=== PATIENT | male | born 2000 | race Caucasian/White ===

== ENCOUNTER 2022-07-26 16:54 | Emergency (ER) | payer MEDICAID, SELFPAY ==
--- NOTE | ~2022-07-26 | XR_ITS ---
EXAMINATION: XR chest 2V CLINICAL INFORMATION: Left-sided chest pain cough COMPARISON: No prior chest x-ray available in our system for comparison at the time of this dictation. TECHNIQUE: XR chest 2V Lungs and Paige: Both lungs are clear. Pleura: Normal. Costophrenic angles are sharp. No pneumothorax. Heart: The heart is normal in size. Mediastinum: The mediastinum is within normal limits.. Bones: Skeletal structures included are normal for patient's age. XR/XR chest 2V IMPRESSION: Normal chest x-ray.
--- NOTE | 2022-07-26 17:02 | ECG_ITS ---
Test Reason : cp Blood Pressure : / mmHG Vent. Rate : 077 BPM Atrial Rate : 077 BPM P-R Int : 166 ms QRS Dur : 106 ms QT Int : 344 ms P-R-T Axes : 072 086 051 degrees QTc Int : 389 ms Normal sinus rhythm Incomplete right bundle branch block Borderline ECG No previous ECGs available Referred By: Generic ED Physician Electronically Signed By:SHEEBA KELLOGG MD
[2022-07-26 17:29] VITALS: BP 116/96; PULSE 96; RESP 18; TEMP 36.3; O2SAT 98; BMI 25.1
--- NOTE | 2022-07-26 17:29 | ED.CHESTPAIN ---
HPI - Chest Pain General Chief Complaint: Chest Pain <LSYSA Lucero Last Filed: 07/26/22 17:32> Stated Complaint: chest pain <LYSSA Lucero Last Filed: 07/26/22 17:32> Time Seen by Provider: 07/26/22 21:02 <LYSSA Lucero Last Filed: 07/26/22 17:32> Source: patient <LYSSA Bradley Last Filed: 07/26/22 23:31> Mode of arrival: ambulatory <LYSSA Bradley Last Filed: 07/26/22 23:31> Limitations: no limitations <LYSSA Bradley Last Filed: 07/26/22 23:31> History of Present Illness HPI narrative: This is a 22-year-old male presenting to the emergency department complaints of chest pain to the left chest that started this morning, patient tells me that the pain is now resolved, he tells me it felt like a squeezing sensation, he also tells me that at that time he had some associated shortness of breath underneath his ribs. Patient denies any personal or significant family cardiac history. No history of sudden cardiac . Patient denies drugs, alcohol and tobacco. Patient denies fevers, chills, nausea, vomiting, abdominal pain, headache, vision changes, dizziness and weakness. Otherwise healthy 22-year-old male no medical history. <LYSSA Bradley Last Filed: 07/26/22 23:31> Related Data Allergies/Adverse Reactions: Allergies Allergy/AdvReac Type Severity Reaction Status Date / Time No Known Allergies Allergy Verified 07/26/22 17:32 <LYSSA Lucero - Last Filed: 07/26/22 17:32> Review of Systems Review of Systems: Constitutional : No Weight loss, No Fever, No Chills, No Fatigue, No Malaise ENT/Mouth : No sore throat, No Rhinorrhea Eyes: No Eye Pain, No Swelling, No Redness Cardiovascular : No Chest Pain, No SOB, No Dyspnea on Exertion, No Orthopnea, No Edema, No Palpitations Respiratory : No Cough, No Sputum, No Wheezing Gastrointestinal : No Nausea, No Vomiting, No Diarrhea, No Constipation, No abdominal Pain, No Hematochezia, No Melena Genitourinary : No Dysuria, No Urinary Frequency, No Hematuria, Musculoskeletal : No joint pain, No Myalgias, No Joint Swelling Skin : No Skin Lesions, No rash Neuro : No Weakness, No Numbness, No Dizziness, No Headache Psych : No Anxiety/Panic, No Depression All other systems reviewed and are negative <LYSSA Bradley - Last Filed: 07/26/22 23:31> Yes all other systems are reviewed and are negative <LYSSA Bradley - Last Filed: 07/26/22 23:31> [facility] [place] Past Medical History Attestation statement: The following information was validated with the patient. <LYSSA Bradley - Last Filed: 07/26/22 23:31> Source: old records reviewed and nursing notes reviewed <LYSSA Bradley - Last Filed: 07/26/22 23:31> Social History Social History: Social History Advance Directives: No Advance Directives Information Provided: No <LYSSA Lucero - Last Filed: 07/26/22 17:32> Physical Exam Vital Signs: Vital Signs: Last Vital Signs Temp 98.3 F 07/26/22 21:30 Pulse 67 07/26/22 21:30 Resp 14 07/26/22 22:00 BP 137/94 H 07/26/22 21:30 Pulse Ox 99 07/26/22 21:30 O2 Del Method 07/26/22 21:30 BMI result Body Mass Index 25.1 <LYSSA Lucero - Last Filed: 07/26/22 17:32> Vital Signs: Last Vital Signs Temp 98.3 F 07/26/22 21:30 Pulse 67 07/26/22 21:30 Resp 14 07/26/22 22:00 BP 137/94 H 07/26/22 21:30 Pulse Ox 99 07/26/22 21:30 O2 Del Method 07/26/22 21:30 BMI result Body Mass Index 25.1 vss <LYSSA Bradley - Last Filed: 07/26/22 23:31> Appearance: Alert.? Oriented X3.? No acute distress.? Head: Normocephalic, atraumatic, no step-offs or deformities Eyes: Pupils equal, round and reactive to light.? ENT: Pharynx normal.? Neck: Normal inspection.? Neck supple.? CVS: Normal heart rate and rhythm.? Pulses normal.? No pain with palpation of chest wall. Respiratory: No respiratory distress.? Breath sounds normal.? Abdomen: Soft and nontender.? Skin: Skin warm and dry.? Normal skin color.? Normal skin turgor.? Extremities: No lower extremity edema.? No calf ttp. 5/5 strength to bilateral upper and lower extremities Neuro: Oriented X 3.? No motor deficit.? No sensory deficit. CN 2-12 intact <LYSSA Bradley - Last Filed: 07/26/22 23:31> Course Course Course Narrative: 17:29 - RME - 22 y/o male presenting to the ER with left sided chest pain that started this morning. He also reports he has had pains similar to this for the last 4 years but never got is. <LYSSA Lucero - Last Filed: 07/26/22 17:32> Reevaluation(s) Reevaluation #1: CBC appears to be with no acute findings requiring intervention. Chemistry without electrolyte abnormalities requiring intervention. Initial troponin slightly elevated 16.7 EKG nonischemic unlikely ACS, repeat troponin pending, D-dimer pending. Influenza a, COVID negative. Patient was given Toradol. <LYSSA Bradley - Last Filed: 07/26/22 23:31> Time: 21:47 <LYSSA Bradley - Last Filed: 07/26/22 23:31> Reevaluation #2: Second troponin not meeting delta criteria, unlikely ACS. D-dimer negative unlikely that this is PE. Chest x-ray normal. Patient tells me he is feeling significantly better after Toradol. At this time patient will be discharged home advised to return with new or worsening symptoms. To note, prior to discharge I did discuss this case with my attending who agrees with diagnosis and treatment plan. Educated patient on diagnosis and treatment plan, answered all question, patient verbalizes understanding. At this time patient will be discharged home, advised to return with new or worsening symptoms. Educated on worrisome signs and symptoms and when to return. At this time I feel comfortable discharge home. <LYSSA Bradley - Last Filed: 07/26/22 23:31> Time: 23:31 <LYSSA Bradley - Last Filed: 07/26/22 23:31> Medications Administered Discontinued Medications Generic Name Dose Route Start Last Admin Trade Name Freq PRN Reason Stop Dose Admin Ketorolac Tromethamine 30 mg 07/26/22 21:10 07/26/22 21:17 Ketorolac Tromethamine 15 Mg/Ml Vial IM 07/26/22 21:11 30 mg ONCE ONE Administration <LYSSA Lucero - Last Filed: 07/26/22 17:32> Medications Administered Discontinued Medications Generic Name Dose Route Start Last Admin Trade Name Freq PRN Reason Stop Dose Admin Ketorolac Tromethamine 30 mg 07/26/22 21:10 07/26/22 21:17 Ketorolac Tromethamine 15 Mg/Ml Vial IM 07/26/22 21:11 30 mg ONCE ONE Administration <LYSSA Bradley - Last Filed: 07/26/22 23:31> Medical Decision Making Medical Decision Making [facility] Narrative: 2114 22-year-old male presents with chest pain and shortness of breath this morning that has now resolved. Also complaining of facial congestion runny nose. Physical examination benign. Likely viral syndrome. I do not suspect myocarditis, pericarditis, ACS or PE on this patient. Will obtain viral panel. Will obtain basic labs, troponin, EKG, viral panel. <LYSSA Bradley - Last Filed: 07/26/22 23:31> Lab Data Result Diagrams: : 07/26/22 17:49 07/26/22 17:49 <LYSSA Lucero - Last Filed: 07/26/22 17:32> Labs: Lab Results 07/26/22 07/26/22 07/26/22 Range/Units 17:49 17:49 17:49 WBC 6.0 (4.8-10.8) X10*3/uL RBC 6.25 H (4.60-5.80) X10*6/uL Hgb 17.1 (14.0-18.0) g/dl Hct 49.0 (42.0-52.0) % MCV 78.4 L (80.0-98.0) fL MCH 27.4 (27.0-33.0) pg MCHC 34.9 (31.0-36.0) g/dl RDW 11.6 (11.0-16.0) % Plt Count 215 (160-400) X10*3/uL MPV 9.0 L (9.4-12.4) fL Immature Gran % (Auto) 0.2 (0.0-0.4) % Neut % (Auto) 59.3 (45-73) % Lymph % (Auto) 27.0 (20-40) % [place] % (Auto) 8.3 (2-11) % Eos % (Auto) 4.7 H (0-4) % Baso % (Auto) 0.5 (0-2) % Lymph # (Auto) 1.6 (1.2-4.9) X10*3/uL [place] # (Auto) 0.5 (0.1-1.2) X10*3/uL Eos # (Auto) 0.3 (0.0-0.4) X10*3/uL Baso # (Auto) 0.0 (0.0-0.2) X10*3/uL Abs Immat Gran (auto) 0.01 (0.00-0.03) X10*3/uL Absolute Neuts (auto) 3.6 (2.0-8.3) x10*3/uL Absolute Nucleated RBC 0.000 (0.0-0.012) X10*3/uL Nucleated RBC % (auto) 0.0 (0.0-0.2) /100WBC D-Dimer High Sensitivty NG/ML Sodium 141 (135-145) mmol/L Potassium 3.8 (3.3-5.1) mmol/L Chloride 104 (96-108) mmol/L Carbon Dioxide 29 (22-29) mmol/L Anion Gap 12 (12-20) BUN 14 (9-16) mg/dL Creatinine 0.79 (0.5-1.4) mg/dL Estim Creat Clear Calc 150.1 Estimated GFR > 60 Random Glucose 90 (60-115) mg/dL Calcium 9.5 (8.4-10.2) mg/dL Magnesium 1.9 (1.6-2.6) mg/dL Total Bilirubin 0.9 (0.0-1.0) mg/dL Direct Bilirubin 0.3 (0.0-0.5) mg/dL AST 21 (5-37) U/L ALT 37 (0-40) U/L Alkaline Phosphatase 71 (39-117) U/L Troponin I High Sens (<3.5-35.0) ng/L Total Protein 7.0 (6.5-8.0) g/dL Albumin 4.5 (3.5-5.0) g/dL COVID-19 ([place]) Negative (Negative) COVID-19 Clin Com See Note Influenza Type A ([facility]) (Negative) Influenza Type B ([facility]) (Negative) Influenza A & B Note 07/26/22 07/26/22 07/26/22 Range/Units 17:49 17:49 21:20 WBC (4.8-10.8) X10*3/uL RBC (4.60-5.80) X10*6/uL Hgb (14.0-18.0) g/dl Hct (42.0-52.0) % MCV (80.0-98.0) fL MCH (27.0-33.0) pg MCHC (31.0-36.0) g/dl RDW (11.0-16.0) % Plt Count (160-400) X10*3/uL MPV (9.4-12.4) fL Immature Gran % (Auto) (0.0-0.4) % Neut % (Auto) (45-73) % Lymph % (Auto) (20-40) % [place] % (Auto) (2-11) % Eos % (Auto) (0-4) % Baso % (Auto) (0-2) % Lymph # (Auto) (1.2-4.9) X10*3/uL [place] # (Auto) (0.1-1.2) X10*3/uL Eos # (Auto) (0.0-0.4) X10*3/uL Baso # (Auto) (0.0-0.2) X10*3/uL Abs Immat Gran (auto) (0.00-0.03) X10*3/uL Absolute Neuts (auto) (2.0-8.3) x10*3/uL Absolute Nucleated RBC (0.0-0.012) X10*3/uL Nucleated RBC % (auto) (0.0-0.2) /100WBC D-Dimer High Sensitivty NG/ML Sodium (135-145) mmol/L Potassium (3.3-5.1) mmol/L Chloride (96-108) mmol/L Carbon Dioxide (22-29) mmol/L Anion Gap (12-20) BUN (9-16) mg/dL Creatinine (0.5-1.4) mg/dL Estim Creat Clear Calc Estimated GFR Random Glucose (60-115) mg/dL Calcium (8.4-10.2) mg/dL Magnesium (1.6-2.6) mg/dL Total Bilirubin (0.0-1.0) mg/dL Direct Bilirubin (0.0-0.5) mg/dL AST (5-37) U/L ALT (0-40) U/L Alkaline Phosphatase (39-117) U/L Troponin I High Sens 16.7 18.9 (<3.5-35.0) ng/L Total Protein (6.5-8.0) g/dL Albumin (3.5-5.0) g/dL COVID-19 ([facility]) (Negative) COVID-19 Clin Com Influenza Type A ([facility]) Negative (Negative) Influenza Type B ([facility]) Negative (Negative) Influenza A & B Note See Note 07/26/22 Range/Units 22:18 WBC (4.8-10.8) X10*3/uL RBC (4.60-5.80) X10*6/uL Hgb (14.0-18.0) g/dl Hct (42.0-52.0) % MCV (80.0-98.0) fL MCH (27.0-33.0) pg MCHC (31.0-36.0) g/dl RDW (11.0-16.0) % Plt Count (160-400) X10*3/uL MPV (9.4-12.4) fL Immature Gran % (Auto) (0.0-0.4) % Neut % (Auto) (45-73) % Lymph % (Auto) (20-40) % [place] % (Auto) (2-11) % Eos % (Auto) (0-4) % Baso % (Auto) (0-2) % Lymph # (Auto) (1.2-4.9) X10*3/uL [place] # (Auto) (0.1-1.2) X10*3/uL Eos # (Auto) (0.0-0.4) X10*3/uL Baso # (Auto) (0.0-0.2) X10*3/uL Abs Immat Gran (auto) (0.00-0.03) X10*3/uL Absolute Neuts (auto) (2.0-8.3) x10*3/uL Absolute Nucleated RBC (0.0-0.012) X10*3/uL Nucleated RBC % (auto) (0.0-0.2) /100WBC D-Dimer High Sensitivty < 150 NG/ML Sodium (135-145) mmol/L Potassium (3.3-5.1) mmol/L Chloride (96-108) mmol/L Carbon Dioxide (22-29) mmol/L Anion Gap (12-20) BUN (9-16) mg/dL Creatinine (0.5-1.4) mg/dL Estim Creat Clear Calc Estimated GFR Random Glucose (60-115) mg/dL Calcium (8.4-10.2) mg/dL Magnesium (1.6-2.6) mg/dL Total Bilirubin (0.0-1.0) mg/dL Direct Bilirubin (0.0-0.5) mg/dL AST (5-37) U/L ALT (0-40) U/L Alkaline Phosphatase (39-117) U/L Troponin I High Sens (<3.5-35.0) ng/L Total Protein (6.5-8.0) g/dL Albumin (3.5-5.0) g/dL COVID-19 ([facility]) (Negative) COVID-19 Clin Com Influenza Type A ([facility]) (Negative) Influenza Type B ([facility]) (Negative) Influenza A & B Note <LYSSA Lucero - Last Filed: 07/26/22 17:32> Lab Results 07/26/22 07/26/22 07/26/22 Range/Units 17:49 17:49 17:49 WBC 6.0 (4.8-10.8) X10*3/uL RBC 6.25 H (4.60-5.80) X10*6/uL Hgb 17.1 (14.0-18.0) g/dl Hct 49.0 (42.0-52.0) % MCV 78.4 L (80.0-98.0) fL MCH 27.4 (27.0-33.0) pg MCHC 34.9 (31.0-36.0) g/dl RDW 11.6 (11.0-16.0) % Plt Count 215 (160-400) X10*3/uL MPV 9.0 L (9.4-12.4) fL Immature Gran % (Auto) 0.2 (0.0-0.4) % Neut % (Auto) 59.3 (45-73) % Lymph % (Auto) 27.0 (20-40) % [place] % (Auto) 8.3 (2-11) % Eos % (Auto) 4.7 H (0-4) % Baso % (Auto) 0.5 (0-2) % Lymph # (Auto) 1.6 (1.2-4.9) X10*3/uL [place] # (Auto) 0.5 (0.1-1.2) X10*3/uL Eos # (Auto) 0.3 (0.0-0.4) X10*3/uL Baso # (Auto) 0.0 (0.0-0.2) X10*3/uL Abs Immat Gran (auto) 0.01 (0.00-0.03) X10*3/uL Absolute Neuts (auto) 3.6 (2.0-8.3) x10*3/uL Absolute Nucleated RBC 0.000 (0.0-0.012) X10*3/uL Nucleated RBC % (auto) 0.0 (0.0-0.2) /100WBC D-Dimer High Sensitivty NG/ML Sodium 141 (135-145) mmol/L Potassium 3.8 (3.3-5.1) mmol/L Chloride 104 (96-108) mmol/L Carbon Dioxide 29 (22-29) mmol/L Anion Gap 12 (12-20) BUN 14 (9-16) mg/dL Creatinine 0.79 (0.5-1.4) mg/dL Estim Creat Clear Calc 150.1 Estimated GFR > 60 Random Glucose 90 (60-115) mg/dL Calcium 9.5 (8.4-10.2) mg/dL Magnesium 1.9 (1.6-2.6) mg/dL Total Bilirubin 0.9 (0.0-1.0) mg/dL Direct Bilirubin 0.3 (0.0-0.5) mg/dL AST 21 (5-37) U/L ALT 37 (0-40) U/L Alkaline Phosphatase 71 (39-117) U/L Troponin I High Sens (<3.5-35.0) ng/L Total Protein 7.0 (6.5-8.0) g/dL Albumin 4.5 (3.5-5.0) g/dL COVID-19 ([facility]) Negative (Negative) COVID-19 Clin Com See Note Influenza Type A ([facility]) (Negative) Influenza Type B ([facility]) (Negative) Influenza A & B Note 07/26/22 07/26/22 07/26/22 Range/Units 17:49 17:49 21:20 WBC (4.8-10.8) X10*3/uL RBC (4.60-5.80) X10*6/uL Hgb (14.0-18.0) g/dl Hct (42.0-52.0) % MCV (80.0-98.0) fL MCH (27.0-33.0) pg MCHC (31.0-36.0) g/dl RDW (11.0-16.0) % Plt Count (160-400) X10*3/uL MPV (9.4-12.4) fL Immature Gran % (Auto) (0.0-0.4) % Neut % (Auto) (45-73) % Lymph % (Auto) (20-40) % [place] % (Auto) (2-11) % Eos % (Auto) (0-4) % Baso % (Auto) (0-2) % Lymph # (Auto) (1.2-4.9) X10*3/uL [place] # (Auto) (0.1-1.2) X10*3/uL Eos # (Auto) (0.0-0.4) X10*3/uL Baso # (Auto) (0.0-0.2) X10*3/uL Abs Immat Gran (auto) (0.00-0.03) X10*3/uL Absolute Neuts (auto) (2.0-8.3) x10*3/uL Absolute Nucleated RBC (0.0-0.012) X10*3/uL Nucleated RBC % (auto) (0.0-0.2) /100WBC D-Dimer High Sensitivty NG/ML Sodium (135-145) mmol/L Potassium (3.3-5.1) mmol/L Chloride (96-108) mmol/L Carbon Dioxide (22-29) mmol/L Anion Gap (12-20) BUN (9-16) mg/dL Creatinine (0.5-1.4) mg/dL Estim Creat Clear Calc Estimated GFR Random Glucose (60-115) mg/dL Calcium (8.4-10.2) mg/dL Magnesium (1.6-2.6) mg/dL Total Bilirubin (0.0-1.0) mg/dL Direct Bilirubin (0.0-0.5) mg/dL AST (5-37) U/L ALT (0-40) U/L Alkaline Phosphatase (39-117) U/L Troponin I High Sens 16.7 18.9 (<3.5-35.0) ng/L Total Protein (6.5-8.0) g/dL Albumin (3.5-5.0) g/dL COVID-19 ([place]) (Negative) COVID-19 Clin Com Influenza Type A ([facility]) Negative (Negative) Influenza Type B ([facility]) Negative (Negative) Influenza A & B Note See Note 07/26/22 Range/Units 22:18 WBC (4.8-10.8) X10*3/uL RBC (4.60-5.80) X10*6/uL Hgb (14.0-18.0) g/dl Hct (42.0-52.0) % MCV (80.0-98.0) fL MCH (27.0-33.0) pg MCHC (31.0-36.0) g/dl RDW (11.0-16.0) % Plt Count (160-400) X10*3/uL MPV (9.4-12.4) fL Immature Gran % (Auto) (0.0-0.4) % Neut % (Auto) (45-73) % Lymph % (Auto) (20-40) % [place] % (Auto) (2-11) % Eos % (Auto) (0-4) % Baso % (Auto) (0-2) % Lymph # (Auto) (1.2-4.9) X10*3/uL [place] # (Auto) (0.1-1.2) X10*3/uL Eos # (Auto) (0.0-0.4) X10*3/uL Baso # (Auto) (0.0-0.2) X10*3/uL Abs Immat Gran (auto) (0.00-0.03) X10*3/uL Absolute Neuts (auto) (2.0-8.3) x10*3/uL Absolute Nucleated RBC (0.0-0.012) X10*3/uL Nucleated RBC % (auto) (0.0-0.2) /100WBC D-Dimer High Sensitivty < 150 NG/ML Sodium (135-145) mmol/L Potassium (3.3-5.1) mmol/L Chloride (96-108) mmol/L Carbon Dioxide (22-29) mmol/L Anion Gap (12-20) BUN (9-16) mg/dL Creatinine (0.5-1.4) mg/dL Estim Creat Clear Calc Estimated GFR Random Glucose (60-115) mg/dL Calcium (8.4-10.2) mg/dL Magnesium (1.6-2.6) mg/dL Total Bilirubin (0.0-1.0) mg/dL Direct Bilirubin (0.0-0.5) mg/dL AST (5-37) U/L ALT (0-40) U/L Alkaline Phosphatase (39-117) U/L Troponin I High Sens (<3.5-35.0) ng/L Total Protein (6.5-8.0) g/dL Albumin (3.5-5.0) g/dL COVID-19 ([place]) (Negative) COVID-19 Clin Com Influenza Type A ([facility]) (Negative) Influenza Type B ([facility]) (Negative) Influenza A & B Note <LYSSA Bradley - Last Filed: 07/26/22 23:31> Critical Care Time Critical Care Time Critical Care Time: No <LYSSA Bradley - Last Filed: 07/26/22 23:31> Discharge Plan Discharge Clinical Impression: Viral infection, Chest pain <LYSSA Lucero Last Filed: 07/26/22 17:32> Patient Disposition: Home, Self-Care <LYSSA Lucero - Last Filed: 07/26/22 17:32> Instructions: Chest Pain (DC), Viral Syndrome (ED) <LYSSA Lucero - Last Filed: 07/26/22 17:32> Additional Instructions: Take your medications as prescribed. If you were prescribed antibiotics today, it is important that you take your medication to their entirety, do not skip any doses, do not finish them early. Follow-up with your primary care provider this week. Follow-up with cardiology of chest pain continue Return to the emergency department with new or worsening symptoms. Such as fevers, chills, chest pain, shortness of breath, nausea, vomiting, dizziness, headache, vision changes, lethargy In case of emergency call 911 You can take ibuprofen every 6 hours, Tylenol every 4 as needed for pain or discomfort. Your laboratory studies were reassuring. Your screening test for a blood clot was negative. You tested negative for influenza and COVID. XR/XR chest 2V IMPRESSION: Normal chest x-ray. <LYSSA Lucero - Last Filed: 07/26/22 17:32> Referrals: [facility] [Provider Group] - 1 week Physician,Unknown J [Primary Care Provider] - 2 days <LYSSA Lucero Last Filed: 07/26/22 17:32> Stand Alone Forms: Work/School Release <LYSSA Lucero Last Filed: 07/26/22 17:32>
[2022-07-26 17:54] LABS: MANUAL DIFF FLAG NO
[2022-07-26 17:56] LABS: Basophils Percent Auto 0.5 % (0-2); Eosinophils Absolute Auto 0.3 X10*3/uL (0.0-0.4); Eosinophils Percent Auto 4.7 % (0-4); Hemoglobin 17.1 g/dl (14.0-18.0); Imm Gran Abs Auto 0.01 X10*3/uL (0.00-0.03); Imm Gran Pct Auto 0.2 % (0.0-0.4); Lymphocytes Absolute Auto 1.6 X10*3/uL (1.2-4.9); Mean Corpuscular HGB Conc 34.9 g/dl (31.0-36.0); Mean Corpuscular Hemoglobin 27.4 pg (27.0-33.0); Mean Corpuscular Volume 78.4 fL (80.0-98.0); Monocytes Absolute Auto 0.5 X10*3/uL (0.1-1.2); Monocytes Percent Auto 8.3 % (2-11); Neutrophils Absolute Auto 3.6 x10*3/uL (2.0-8.3); Neutrophils Percent Auto 59.3 % (45-73); Platelet Count 215 X10*3/uL (160-400); Red Blood Count 6.25 X10*6/uL (4.60-5.80); Red Cell Distribution Width 11.6 % (11.0-16.0)
[2022-07-26 18:15] LABS: Alanine Aminotransferase 37 U/L (0-40); Albumin Level 4.5 g/dL (3.5-5.0); Alkaline Phosphatase 71 U/L (39-117); Anion Gap 12 (12-20); Aspartate Amino Transferase 21 U/L (5-37); Bilirubin Direct 0.3 mg/dL (0.0-0.5); Bilirubin Total 0.9 mg/dL (0.0-1.0); Blood Urea Nitrogen 14 mg/dL (9-16); COVID-19 Test Negative (Negative); Calcium 9.5 mg/dL (8.4-10.2); Carbon Dioxide 29 mmol/L (22-29); Chloride 104 mmol/L (96-108); Creatinine Clr Calc Pharmacy 150.1; Estimated Glomerular Filt Rate > 60; Glucose Random 90 mg/dL (60-115); IDNOW Serial# 16C4AD1C; IDNOW Serial# BCCEAD1C; Influenza A Negative (Negative); Influenza B2 Negative (Negative); Magnesium 1.9 mg/dL (1.6-2.6); Potassium 3.8 mmol/L (3.3-5.1); Sodium 141 mmol/L (135-145)
[2022-07-26 18:18] LABS: Troponin-I High Sensitivity 16.7 ng/L (<3.5-35.0)
[2022-07-26] MEDS: Ketorolac Tromethamine 15 MG/ML VIAL 30 MG IM (21:17)
[2022-07-26 21:30] VITALS: BP 137/94; PULSE 67; RESP 12; TEMP 36.8; O2SAT 99
[2022-07-26 21:48] LABS: Troponin-I High Sensitivity 18.9 ng/L (<3.5-35.0)
[2022-07-26 22:00] VITALS: RESP 14
--- NOTE | 2022-07-26 22:03 | PC.NURSE ---
Per Dr Michel no repeat Troponin needed at this time. Pt able to void dark yellow cloudy urine. Sample sent to the lab as ordered.
[2022-07-26 22:37] LABS: D Dimer High Sensitivity < 150 NG/ML
[2022-07-27] VITALS: BP 118/70; PULSE 63; RESP 16; TEMP 36.4; O2SAT 98
--- NOTE | 2022-07-27 00:19 | PC.NURSE ---
Reviewed discharge instructions with pt. pt verbalized understanding. Notified pt DINH Gonzalez. Pt is a&o, no sob or current chest pain. Pt able to ambulate with a steady gait at discharge.
== END 2022-07-27 00:21 | disposition home or self-care (01) ==
PROVIDERS: Physician Assistant; Emergency Provider Emergency Medicine
DX: B34.9 Viral infection, unspecified (principal); R07.89 Other chest pain; Z20.822 Contact with and (suspected) exposure to COVID-19; Z79.899 Other long term (current) drug therapy
CPT/HCPCS: 36415; 71046; 80048; 80076; 83735; 84484; 85025; 85379; 87502; 87635; 93005; 96372; 99284; 99285; J1885